=== PATIENT | male | born 1990 | race Caucasian/White ===

== ENCOUNTER 2024-02-23 21:03 | Emergency (ER) | payer OTHER ==
[~2024-02-23] VITALS: Ht 167.6 cm; Wt 68.0 kg
[2024-02-23] MEDS ORDERED: Acetaminophen 500 MG Tab PO ONE ×2 (21:25→23:55)
[2024-02-23] MEDS ORDERED: Amoxicillin 500 MG Cap PO ONE ×2 (21:30→23:55)
[2024-02-23] MEDS ORDERED: Amoxicillin500 M1 PO (21:40)
== END 2024-02-24 00:05 | disposition home or self-care (01) ==
LOC: ER 21:03
DX: J02.0 Streptococcal pharyngitis (principal)
CPT/HCPCS: 87430; A9270